=== PATIENT | female | born 2000 | race Hispanic/Latino ===

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

== ENCOUNTER 2019-09-09 03:54 | Emergency (ER) | payer OTHER ==
[2019-09-09] MEDS ORDERED: IBUPROFEN 600 MG TABLET ONE (05:09)
[2019-09-09] MEDS ORDERED: LIDOCAINE 5% TOPICAL PATCH TP ONE (05:09)
[2019-09-09] MEDS ORDERED: ACETAMINOPHEN EXTRA STRENGTH 500 MG TABLET ONE (05:10)
== END 2019-09-09 05:24 | disposition home or self-care (01) ==
LOC: EDH 03:54
DX: S60.221A Contusion of right hand, initial encounter (principal); W22.01XA Walked into wall, initial encounter; Y93.89 Activity, other specified; Y92.89 Other specified places as the place of occurrence of the external cause; Y99.8 Other external cause status
CPT/HCPCS: 73130

== ENCOUNTER 2020-05-12 14:55 | Emergency (ER) | payer SELFPAY ==
[2020-05-12 15:44] LABS: APPEARANCE,URINE Clear (CLEAR); BILIRUBIN,URINE Negative (NEGATIVE); COLOR,URINE Yellow (YELLOW); GLUCOSE, URINE (UA) Negative (NEGATIVE); KETONES,URINE Trace mg/dL (NEGATIVE); LEUKOCYTE ESTERASE ,URINE Negative (NEGATIVE); NITRATE,URINE Negative (NEGATIVE); OCCULT BLOOD,URINE Negative (NEGATIVE); PH,URINE 5.5 (5.0-8.0); PROTEIN,URINE Negative (NEGATIVE)
[2020-05-12 15:46] LABS: HCG,QUAL RESULT NEGATIVE (NEGATIVE)
== END 2020-05-12 16:27 | disposition home or self-care (01) ==
LOC: EDH 14:55
DX: R30.0 Dysuria (principal); R10.9 Unspecified abdominal pain
CPT/HCPCS: 81003; 81025; 87486; 87797